=== PATIENT | female | born 1985 | race Caucasian/White ===

== ENCOUNTER → 2021-02-24 07:55 | Outpatient (CLI) | payer OTHER, SELFPAY ==
--- NOTE | 2021-02-24 07:59 | DI.RAD.S_ITS ---
PROCEDURE: XR KNEE LT 3V INDICATIONS: L knee pain TECHNIQUE: 3 views of the knee were acquired. COMPARISON: None. FINDINGS: Bones: No fractures or dislocations. No suspicious bony lesions. Soft tissues: Small to moderate suprapatellar joint effusion is seen. No suspicious soft tissue calcifications. IMPRESSION: No left knee fracture or dislocation. Small to moderate suprapatellar joint effusion. If indicated, MRI of knee can be done for evaluation of internal derangement. Dictated by: Tucker Stevens M.D. on 02/24/2021 at 9:21 Approved by: Tucker Stevens M.D. on 02/24/2021 at 9:22
== END ==
LOC: RAD 07:59
PROVIDERS: Referring Provider Physician Assistant; Visit Provider Physician Assistant
DX: S86.912A Strain of unspecified muscle(s) and tendon(s) at lower leg level, left leg, initial encounter (principal); M25.562 Pain in left knee; M25.462 Effusion, left knee
CPT/HCPCS: 73562